=== PATIENT | male | born 1955 ===

== ENCOUNTER → 2022-02-13 | Day surgery (SDC) | payer OTHER ==
[2022-02-12 13:49] LABS: Absolute Lymphocytes (CBC) 2.2 K/uL (0.7-4.9); Hematocrit 45.2 % (39.6-49.0); Lymphocytes % 31.4 % (15.3-44.8); MPV 8.1 fL (7.6-11.3); RBC Red Blood Cell Count 5.19 M/uL (4.33-5.43)
[2022-02-12 14:03] LABS: Potassium 3.8 mmol/L (3.5-5.1); Protime INR 1.03
--- NOTE | 2022-02-12 14:40 | RAD REPORT ---
EXAM DESCRIPTION: RAD - Chest Pa And Lat (2 Views) - 02/12/2022 2:14 pm CLINICAL HISTORY: Pre op pending heart cath COMPARISON: Two view chest 07/14/2015 TECHNIQUE: Frontal and lateral views of the chest were obtained. FINDINGS: The lungs are clear. Lung parenchymal pattern matches comparison. Heart size is normal an d central vasculature is within normal limits. No pleural effusion or pneumothorax seen. No acute b malia finding noted. No aortic abnormality. IMPRESSION: No acute cardiopulmonary process.
[~2022-02-13] MED LIST: ATROPINE SULF 1 MG/10 ML SYR IV ONE; FENTANYL CITR 100 MCG/2 ML ONE; HEPA 1000U/500MLS 0 UNIT/0 ML BAG IV ONE; HEPA 1000U/500MLS 1,000 UNIT/500 ML BAG IV ONE; LIDOCAINE 1% MPF 30 ML VIAL ONE; MIDAZOLAM HCL 2 MG/2 ML INJ ONE; NA CHLORIDE 0.9% 0 ML ONE; NA CHLORIDE 0.9% 50 ML ONE; NA CHLORIDE 0.9% 500 ML ONE; NITROGLYCERIN/D5W 25 MG/250 ML BTL IV ONE
--- NOTE | 2022-02-13 09:11 | EKG ---
Test Date: 2022-02-12 Test Time: 13:24:30 Shoe Salesman: TOBY MEASUREMENT RESULTS: Intervals: Rate: 65 NV: 196 QRSD: 188 QT: 472 QTc: 490 Rogers: P: 46 NV: 196 QRS: 218 T: 33 INTERPRETIVE STATEMENTS: Normal sinus rhythm Right bundle branch block Inferior infarct, age undetermined Abnormal ECG Compared to ECG 09/10/2012 02:46:36 Right bundle-branch block now present Myocardial infarct finding now present Atrial fibrillation no longer present Electronically Signed On 02-13-22 09:08:19 CDT by Edgar Colindres
[2022-02-13 11:44] VITALS: BP 117/52; O2SAT 98
--- NOTE | 2022-02-13 19:22 | OP ---
Surgeon: Edgar Colindres MD Admitted on 02/13/2022 as an outpatient for left heart catheterization, selective coronary arteriogra m, common femoral artery angiogram. Indication: Cardiac clearance, paroxysmal atrial fibrillation, positive stress test, and dyspnea on exertion. Procedure In Detail: The patient was brought to the computer laboratory technician as an outpatient on 02/13/2022, underwe nt a left heart catheterization, selective coronary arteriogram, common femoral angiogram. He was pr epped and draped in routine sterile fashion, given Versed and fentanyl for sedation. A 6-Spanish melendez th introduced in the right common femoral artery successfully. Angiography there was normal. Angio- Seal was used to close the case. A 6-Spanish sheath introduced using the Seldinger technique and 10 c c of Xylocaine. Shanda catheter was used to cannulate the left main and the right main. He was fou nd to have about a 50% stenosis in the mid LAD, diffuse plaquing at the distal RCA. He was codominan t. Anesthesia: Total conscious sedation was 45 minutes. There were no complications. Blood Loss: 5 mL. Postoperative Diagnosis: Moderate coronary artery disease. Continue medical therapy. I will increase his pravastatin to 40 mg daily. I will clear him for his knee surgery. He will stay in the hospital for 2 hours bedrest and he will see me in the office in 2 weeks. I would like to note that the right common iliac artery was extremely tortuous. If the rc ent needs intervention down the road it would be better to go through the wrist approach. I will discuss the case further with Dr. Kierra rodriguez nd with the patient. RICHARDSON/SRINIVASAN Voice ID: [id number] Report ID: [id number]
== END ==
LOC: CCL 06:30
DX: I25.10 Atherosclerotic heart disease of native coronary artery without angina pectoris (principal); I48.0 Paroxysmal atrial fibrillation; I10 Essential (primary) hypertension; Z87.891 Personal history of nicotine dependence; Z01.810 Encounter for preprocedural cardiovascular examination; Z79.899 Other long term (current) drug therapy; Z20.822 Contact with and (suspected) exposure to COVID-19
CPT/HCPCS: 93005; 85025; 80048; 36415; 85610; 85730; 71046; 93454; U0003; C1893; C1760; Q9967; G0269; C1877; J2250; J3010; J0583; J7040; J1644